=== PATIENT | female | born 1965 | race Caucasian/White ===

== ENCOUNTER 2019-05-03 10:40 | Emergency (ER) | payer BC ==
[2019-05-03 10:58] VITALS: RESP 18; TEMP 98.7
--- NOTE | 2019-05-03 11:36 | XR ---
Right knee HISTORY: Right knee pain 3 views of the right knee Bone mineralization, joint spaces and alignment are maintained. No fracture or dislocation. Minimal s uprapatellar increased density may represent small effusion. IMPRESSION: Difficult to exclude small effusion. Knee MRI may be of benefit.
--- NOTE | 2019-05-03 11:57 | ED ---
Lower Extremity Injury HPI - General Chief Complaint: Extremity Injury, Lower Stated Complaint: Knee Pain Time Seen by Provider: 05/03/19 10:59 Source: patient, RN notes reviewed Mode of arrival: ambulatory Limitations: no limitations - History of Present Illness Initial Comments: 53-year-old female presents emergency Department chief complaint of right knee pain. Patient states has progressively worsened. 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 Patient states that she feels some pain in the top of her calf and posterior knee region. Denies any definite swelling redness or discoloration no trauma. Patient states that has been more bothersome words difficult to walk. Patient's had no prior knee surgeries denie s any other complaints no paresthesias. - Related Data Home Medications Medication Instructions Recorded Confirmed No Known Home Medications 05/03/19 05/03/19 Allergies Allergy/AdvReac Type Severity Reaction Status Date / Time No Known Allergies Allergy Verified 05/03/19 11:14 Review of Systems ROS Statement: Those systems with pertinent positive or pertinent negative responses have been documented in the HPI. ROS Other: All systems not noted in ROS Statement are negative. Past Medical History Past Medical History: Cancer Additional Past Medical History / Comment(s): hx. skin cancer History of Any Multi-Drug Resistant Organisms: None Reported Past Surgical History: No Surgical Hx Reported Additional Past Anesthesia/Blood Transfusion Reaction / Comment(s): no family problems w/anesthesia Past Psychological History: No Psychological Hx Reported Smoking Status: Never smoker Past Alcohol Use History: Daily Past Drug Use History: None Reported General Exam Limitations: no limitations General appearance: alert, in no apparent distress Head exam: Present: atraumatic, normocephalic, normal inspection Eye exam: Present: normal appearance, PERRL, EOMI. Absent: scleral icterus, conjunctival injection, periorbital swelling ENT exam: Present: normal exam, normal oropharynx, mucous membranes moist Neck exam: Present: normal inspection, full ROM. Absent: tenderness, meningismus, lymphadenopathy Respiratory exam: Present: normal lung sounds bilaterally. Absent: respiratory distress, wheezes, rales, rhonchi, stridor Cardiovascular Exam: Present: regular rate, normal rhythm, normal heart sounds. Absent: systolic murmur, diastolic murmur, rubs, gallop, clicks Extremities exam: Present: other (Right knee there is mild tenderness in the popliteal region more on the medial aspect, patient's full range of motion no laxity no pain with anterior posterior valgus or varus. Pulses equal bilaterally no discoloration equal warmth) Skin exam: Present: warm, dry, intact, normal color. Absent: rash Course Vital Signs 05/03/19 05/03/19 10:54 12:58 Temperature 98.7 F Pulse Rate 90 61 Respiratory 18 18 Rate Blood Pressure 158/71 145/78 O2 Sat by Pulse 100 100 Oximetry Medical Decision Making - Medical Decision Making 53-year-old female presented for right knee pain. Patient also shows evidence of gastrocnemius cyst. Patient will follow-up with orthopedics she does have an appointment scheduled. Patient continued anti-inflammatories, ice and rest. Disposition Clinical Impression: Popliteal cyst Narrative: Gastrocnemius cyst Disposition: HOME SELF-CARE Condition: Stable Instructions (If sedation given, give patient instructions): Bakers Cyst (ED) Additional Instructions: Please return to the Emergency Department if symptoms worsen or any other concerns. Is patient prescribed a controlled substance at d/c from ED?: No Referrals: Benson Gilman MD [Primary Care Provider] - 1-2 days Brian Diaz MD [STAFF PHYSICIAN] - 1-2 days Time of Disposition: 13:04
--- NOTE | 2019-05-03 12:47 | US ---
EXAMINATION TYPE: US venous doppler duplex LE RT DATE OF EXAM: 05/03/2019 12:26 PM COMPARISON: NONE CLINICAL HISTORY: Pain. Right medial popliteal pain SIDE PERFORMED: Right TECHNIQUE: The lower extremity deep venous system is examined utilizing real time linear array sonog roxi with graded compression, doppler sonography and color-flow sonography. VESSELS IMAGED: Common Femoral Vein Deep Femoral Vein Greater Saphenous Vein * Femoral Vein Popliteal Vein Small Saphenous Vein * Proximal Calf Veins (* superficial vessels) There is normal flow, compressibility, vascular waveforms. Right Leg: Negative for DVT. Small complex fluid area medial to rt knee at area of patient's pain = 2.4 x 1.0 x 1.3cm. IMPRESSION: No evident deep venous thrombosis at or above the right knee. 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 Consider knee MRI for better evaluation.
[2019-05-03 12:59] VITALS: BP 145/78; PULSE 61
== END 2019-05-03 13:15 | disposition home or self-care (01) ==
LOC: EC 10:40
DX: M71.21 Synovial cyst of popliteal space [Baker], right knee (principal); Z85.828 Personal history of other malignant neoplasm of skin
CPT/HCPCS: 99284

== ENCOUNTER → 2019-11-15 | Outpatient (CLI) | payer BC ==
[2019-11-15 12:30] LABS: Basophils % (A) 0 %; Eosinophils # (A) 0.1 k/uL (0-0.7); Eosinophils % (A) 2 %; HCT 28.6 % (34.0-46.0); HGB 8.8 gm/dL (11.4-16.0); Hypochromasia Marked; Lymphocytes # (A) 1.1 k/uL (1.0-4.8); Lymphocytes % (A) 14 %; MCH 25.8 pg (25.0-35.0); MCHC 30.8 g/dL (31.0-37.0); MCV 83.8 fL (80.0-100.0); Mean Platelet Volume 7.3; Monocytes # (A) 0.4 k/uL (0-1.0); Monocytes % (A) 5 %; Neutrophils % (A) 76 %; Platelet Count 528 k/uL (150-450); RBC 3.41 m/uL (3.80-5.40); RDW 13.8 % (11.5-15.5); WBC 7.8 k/uL (3.8-10.6)
== END | disposition home or self-care (01) ==
LOC: LABPAT 11:42
PROVIDERS: ATTEND Obstetrics & Gynecology
DX: Z01.818 Encounter for other preprocedural examination (principal); N92.0 Excessive and frequent menstruation with regular cycle; N93.8 Other specified abnormal uterine and vaginal bleeding; D64.9 Anemia, unspecified
CPT/HCPCS: 36415; 85025

== ENCOUNTER 2019-12-06 06:06 | Day surgery (SDC) | payer BC ==
[2019-12-01 15:36] VITALS: BMI 21.7
[~2019-12-06 06:06] MED LIST: DEXAMETHASONE SOD PHOSPHATE 10 MG/ML 1 ML VIAL IV ONE; HYDROmorphone 0.5 MG/0.5 ML SYRINGE IVP PRN; LACTATED RINGERS 1,000 ML IV SCH; MIDAZOLAM 2 MG/2 ML VIAL IV PRN; ONDANSETRON 4 MG/2 ML VIAL IVP ONE; Pre Op ABX Message 1 EACH MISC MISCELLANE ONE; SCOPOLAMINE 1.5MG/72HR PATCH TRANSDERM ONE
[2019-12-06] MEDS ORDERED: LIDOCAINE 1% INJ 10MG/ML (20 ML MDV) ONE (07:25)
[2019-12-06] MEDS ORDERED: KETOROLAC 30 MG/ML 1 ML VIAL ONE (07:25)
[2019-12-06] MEDS ORDERED: PROPOFOL 10 MG/ML 20 ML VIAL IV ONE (07:25)
[2019-12-06] MEDS ORDERED: MIDAZOLAM 2 MG/2 ML VIAL ONE (07:25)
[2019-12-06] MEDS ORDERED: fentaNYL (PF) 50 MCG/ML 2 ML AMP ONE (07:25)
[2019-12-06 08:11] VITALS: TEMP 97.6
[2019-12-06] MEDS ORDERED: SIMETHICONE 80 MG CHEWABLE PO PRN (08:11)
[2019-12-06] MEDS ORDERED: diphenhydrAMINE 50 MG/ML 1 ML VIAL IVP PRN (08:11)
[2019-12-06] MEDS ORDERED: METOCLOPRAMIDE 5 MG/ML 2 ML VIAL IVP PRN (08:11)
[2019-12-06] MEDS ORDERED: ONDANSETRON 4 MG/2 ML VIAL IVP PRN (08:11)
[2019-12-06] MEDS ORDERED: IBUPROFEN 600 MG TAB PO PRN (08:11)
[2019-12-06] MEDS ORDERED: Acetaminophen-Codeine 300-30mg TAB PO PRN ×2 (08:11)
[2019-12-06] MEDS ORDERED: KETOROLAC 30 MG/ML 1 ML VIAL IVP PRN (08:11)
[2019-12-06] MEDS ORDERED: LACTATED RINGERS 1,000 ML IV SCH (08:15)
--- NOTE | 2019-12-06 08:20 | P.OP ---
Date of Procedure: 12/06/19 Preoperative Diagnosis: #1. Menorrhagia #2. Dysfunctional uterine bleeding Postoperative Diagnosis: Same Procedure(s) Performed: #1. Diagnostic hysteroscopy #2. NovaSure endometrial ablation Anesthesia: other (Gen. by LMA) Surgeon: Nicolas Martin Estimated Blood Loss (ml): 5 IV fluids (ml): 400 Urine output (ml): 50 Pathology: none sent Condition: stable Disposition: PACU Operative Findings: Preoperative pelvic examination demonstrated a 5-6 week midplane to slightly anteverted mobile normal shaped uterus with normal adnexa bilaterally. Intraoperatively, the uterus sounded to approximately 9 cm while the cervix measured approximately 3.5 cm. There was some clot within the endometrial cavity making clear view of the entire cavity somewhat difficult. The tubal ostial regions were seen but the ostia themselves were not specifically seen. There was otherwise no apparent pathology present. The settings for the NovaSure tool was a length of 5.5 cm, a width of 4.7 cm for a total power of 142 W. The cavity check was passed without difficulty. The total run time was 47 seconds after which time the base unit read "procedure complete." The postprocedural result appeared to be excellent. The patient is a borderline candidate for vaginal hysterectomy should become necessary. Description of Procedure: The patient was prepped and draped in usual fashion after general anesthesia was administered by the anesthesiologist. A weighted speculum was placed and the bladder drained of approximately 50 mL of clear ethel urine. The anterior lip of the cervix was grasped with a single-tooth tenaculum allowing sounding of the uterus to 9 cm with a length of 3.5 cm for the cervix. Serial dilation was carried out to admit the diagnostic hysteroscope which was placed with the findings noted as above. There was no apparent pathology. The tubal ostia were never clearly seen secondary to the angles of the uterine cavity but there was no apparent pathology as previously noted. There was a small amount of clot in the cavity making view of each surface more difficult. The scope was removed and set aside after adequate hysteroscopy and the NovaSure tool placed into the cavity, opened, and seated well. The settings were as noted above with a length of 5.5 cm, a width of 4.7 cm for a total power 142 W. The cavity check was attempted and passed without difficulty. The tool was enabled and the run was started. After a run time of 47 seconds, the base unit read "procedure complete." The tool was closed, removed, and discarded. The diagnostic hysteroscope was replaced within the endometrial cavity and the resulting findings appeared excellent. All instrumentation was removed and there was no ongoing bleeding from either the cervix or the tenaculum site. Estimated blood loss for the entire case was less than 5 mL. There were no complications. All sponge, instrument, and needle counts were correct. The patient tolerated the procedure well and proceeded to the recovery room in stable condition.
[2019-12-06 10:22] VITALS: BP 142/73; PULSE 61; RESP 18
== END 2019-12-06 10:30 | disposition home or self-care (01) ==
LOC: OR 06:06
PROVIDERS: ATTEND Obstetrics & Gynecology
DX: N92.0 Excessive and frequent menstruation with regular cycle (principal); N93.8 Other specified abnormal uterine and vaginal bleeding; D64.9 Anemia, unspecified; E89.2 Postprocedural hypoparathyroidism; E55.9 Vitamin D deficiency, unspecified; J40 Bronchitis, not specified as acute or chronic; Z87.891 Personal history of nicotine dependence; Z82.49 Family history of ischemic heart disease and other diseases of the circulatory system; Z85.9 Personal history of malignant neoplasm, unspecified
CPT/HCPCS: 81025; 58563; J2250; J1100; J2405; J2001; J3010; J1885; J2704

== ENCOUNTER → 2020-06-21 | Outpatient (CLI) | payer BC ==
[2020-06-21 08:32] LABS: Anisocytosis Slight; Basophils % (A) 1 %; Eosinophils # (A) 0.2 k/uL (0-0.7); Eosinophils % (A) 4 %; HCT 27.7 % (34.0-46.0); HGB 7.8 gm/dL (11.4-16.0); Hypochromasia Marked; Lymphocytes # (A) 0.9 k/uL (1.0-4.8); Lymphocytes % (A) 18 %; MCH 20.8 pg (25.0-35.0); MCHC 28.2 g/dL (31.0-37.0); MCV 73.6 fL (80.0-100.0); Mean Platelet Volume 6.6; Microcytosis Moderate; Monocytes # (A) 0.3 k/uL (0-1.0); Monocytes % (A) 6 %; Neutrophils # (A) 3.6 k/uL (1.3-7.7); Neutrophils % (A) 69 %; Platelet Count 550 k/uL (150-450); RBC 3.76 m/uL (3.80-5.40); RDW 16.4 % (11.5-15.5); WBC 5.2 k/uL (3.8-10.6)
[2020-06-21 08:38] LABS: African American GFR (CKD) >90 (>60 ml/min/1.73 sqM); Anion Gap 4 mmol/L; Blood Urea Nitrogen 15 mg/dL (7-17); Carbon Dioxide 23 mmol/L (22-30); Chloride 107 mmol/L (98-107); Glucose 97 mg/dL (74-99); Non-African American GFR(CKD) >90 (>60 ml/min/1.73 sqM); Sodium 134 mmol/L (137-145)
== END | disposition home or self-care (01) ==
LOC: LABWHC1 07:27
PROVIDERS: ATTEND Obstetrics & Gynecology
DX: Z01.818 Encounter for other preprocedural examination (principal); N93.8 Other specified abnormal uterine and vaginal bleeding
CPT/HCPCS: 36415; 80051; 82565; 82947; 84520; 85025; 87086

== ENCOUNTER 2020-06-26 05:43 | Day surgery (SDC) | payer BC ==
[2020-06-20 11:53] VITALS: BMI 21.7
--- NOTE | 2020-06-25 18:30 | HP ---
HISTORY AND PHYSICAL HISTORY OF PRESENT ILLNESS: The patient is a 54-year-old 0, para 0 who presents to the office with a longstanding history of irregular bleeding and has failed multiple medical interventions, including NovaSure endometrial ablation which was done approximately 8 months ago. She continues to have irregular and fairly continuous and occasionally very heavy vaginal bleeding and has requested definitive treatment with hysterectomy. Exam under anesthesia suggests the best approach is Da Alina in nature. PAST MEDICAL HISTORY: Significant for anemia, possible fibroid uterus and chronic shoulder issues. PAST SURGICAL HISTORY: Significant for diagnostic hysteroscopy with NovaSure endometrial ablation in 2019. She additionally has undergone parathyroidectomy in the distant past and colonoscopy as well. There were no apparent anesthetic concerns. OBSTETRICAL HISTORY: 0, para 0 with method of contraception being vasectomy as well as menopause at this point. GYNECOLOGIC HISTORY: Unremarkable, with no history of any infections to include STDs. FAMILY HISTORY: Noncontributory. SOCIAL HISTORY: The patient is and a nonsmoker. She denies any alcohol of concern or any other social concerns. CURRENT MEDICATIONS: Current medications include oral contraception daily. She also takes ibuprofen as needed as well as vitamin D and calcium over the counter. ALLERGIES: NO KNOWN DRUG ALLERGIES. REVIEW OF SYSTEMS: Review of systems is confined to history of present illness. PHYSICAL EXAMINATION: Vital signs are stable. The patient is afebrile. In general, this is a well- developed, well-nourished white female in no acute distress. Her heart has a regular rhythm and rate without murmur. Her lungs are clear to auscultation bilaterally in all banegas. Her abdomen is nondistended, has normoactive bowel sounds, is soft, nontender, and without any palpable masses, hepatosplenomegaly or hernias. Her extremities are without any cyanosis, clubbing or significant edema and are nontender to palpation bilaterally. Pelvic examination demonstrates normal external genitalia and BUS with normal vaginal mucosa and cervix. There is no cervical motion tenderness. The uterus is approximately 5-6 weeks in size, mid plane to slightly anteverted, mobile, nontender and normal in shape. The adnexa are normal and nontender without mass bilaterally. ASSESSMENT AND PLAN: Dysfunctional uterine bleeding. The patient has failed multiple medical interventions, including NovaSure endometrial ablation, and has requested definitive therapy with hysterectomy. Exam bears out that a robotic approach would likely be the most effective. As a result, she was counseled regarding Da Alina robotically assisted laparoscopic hysterectomy with bilateral salpingectomy and diagnostic cystoscopy. The risks and complications of the procedure have been thoroughly discussed, including the risk for bleeding, bleeding requiring transfusion, infection, and injury to local structures to specifically include the bowel, bladder and ureters. I went on to discuss injuries that were unique to Da Alina surgery, including thermal injury as well as vaginal cuff dehiscence. She has understood all this and agreed to proceed. We are scheduled for the morning of June 26, 2020, for the procedures as outlined above. MMODL / IJN: [id number] /
[~2020-06-26 05:43] MED LIST changes: -LACTATED RINGERS 1,000 ML IV SCH; -Pre Op ABX Message 1 EACH MISC MISCELLANE ONE
[2020-06-26] MEDS: LACTATED RINGERS 1,000 ML IV SCH ×2 (06:21→08:14)
[2020-06-26 06:29] LABS: Glucose,Whole Blood 104 mg/dL (75-99)
[2020-06-26] MEDS ORDERED: fentaNYL (PF) 50 MCG/ML 2 ML AMP IV ONE (06:43)
[2020-06-26 06:44] LABS: Anisocytosis Slight; Basophils % (A) 0 %; Eosinophils # (A) 0.4 k/uL (0-0.7); Eosinophils % (A) 4 %; HCT 29.8 % (34.0-46.0); HGB 8.8 gm/dL (11.4-16.0); Hypochromasia Marked; Lymphocytes # (A) 1.1 k/uL (1.0-4.8); Lymphocytes % (A) 13 %; MCH 21.9 pg (25.0-35.0); MCHC 29.5 g/dL (31.0-37.0); MCV 74.2 fL (80.0-100.0); Mean Platelet Volume 6.8; Microcytosis Moderate; Monocytes # (A) 0.4 k/uL (0-1.0); Monocytes % (A) 4 %; Neutrophils # (A) 6.8 k/uL (1.3-7.7); Neutrophils % (A) 78 %; Platelet Count 524 k/uL (150-450); RBC 4.02 m/uL (3.80-5.40); RDW 16.7 % (11.5-15.5); WBC 8.7 k/uL (3.8-10.6)
[2020-06-26] MEDS ORDERED: MORPHINE SULFATE (PF) 0.3 MG/0.3 ML SYR ONE (07:25)
[2020-06-26] MEDS ORDERED: ROCURONIUM 10 MG/ML (5 ML VIAL) IV ONE (07:25)
[2020-06-26] MEDS ORDERED: PROPOFOL 10 MG/ML 20 ML VIAL IV ONE (07:25)
[2020-06-26] MEDS ORDERED: GLYCOPYRROLATE 0.2 MG/ML 2 ML VIAL ONE (07:25)
[2020-06-26] MEDS ORDERED: NEOSTIGMINE 1 MG/ML 10 ML VIAL ONE (07:25)
[2020-06-26] MEDS ORDERED: MIDAZOLAM 2 MG/2 ML VIAL ONE (07:25)
[2020-06-26] MEDS ORDERED: SUCCINYLCHOLINE CHLORIDE 100 MG/5 ML SYR IV ONE (07:25)
[2020-06-26] MEDS ORDERED: LIDOCAINE 1% INJ 10MG/ML (20 ML MDV) ONE (07:25)
[2020-06-26] MEDS ORDERED: fentaNYL (PF) 50 MCG/ML 2 ML AMP ONE (07:25)
[2020-06-26] MEDS ORDERED: BUPIVACAINE (PF) 0.25% 30 ML VIAL SQ ONE ×2 (07:35→09:34)
[2020-06-26] MEDS ORDERED: IV FLUID CONTINUATION 1,000 ML IV ONE (07:35)
[2020-06-26] MEDS ORDERED: LACTATED RINGERS 1,000 ML IV ONE (09:19)
[2020-06-26] MEDS ORDERED: ONDANSETRON 4 MG/2 ML VIAL IVP PRN (09:41)
[2020-06-26] MEDS ORDERED: METOCLOPRAMIDE 5 MG/ML 2 ML VIAL IVP PRN (09:41)
[2020-06-26] MEDS ORDERED: KETOROLAC 15 MG/ML 1 ML VIAL IVP PRN (09:41)
[2020-06-26] MEDS ORDERED: Acetaminophen-Codeine 300-30mg TAB PO PRN ×2 (09:41)
[2020-06-26] MEDS ORDERED: IBUPROFEN 600 MG TAB PO PRN (09:41)
[2020-06-26] MEDS ORDERED: SIMETHICONE 80 MG CHEWABLE PO PRN (09:41)
[2020-06-26] MEDS ORDERED: diphenhydrAMINE 50 MG/ML 1 ML VIAL IVP PRN (09:41)
[2020-06-26] MEDS: HYDROmorphone 1 MG/ML 1 ML SYRINGE IVP ONE ×2 (09:50→10:02)
--- NOTE | 2020-06-26 09:55 | P.OP ---
Date of Procedure: 06/26/20 Preoperative Diagnosis: #1. Menorrhagia #2. Dysfunctional uterine bleeding #3. Failed endometrial ablation Postoperative Diagnosis: Same plus #4. Fibroid uterus Procedure(s) Performed: #1. Da Alina robotically assisted laparoscopic hysterectomy with bilateral salpingectomy #2. Diagnostic cystoscopy Anesthesia: CROW Surgeon: Nicolas Martin Scroll Shear Operator #1: Shannon Cabral Estimated Blood Loss (ml): 100 IV fluids (ml): 700 Urine output (ml): 200 Pathology: other (Uterus, and pieces secondary to morcellation) Condition: stable Disposition: PACU Operative Findings: Preoperative pelvic examination demonstrated a roughly 6 week midplane mobile normal shaped uterus with normal adnexa bilaterally. Intraoperatively, the uterus was fairly significantly bulky and appeared adenomyotic with a possible l eft fundal fibroid. The tubes and ovaries were otherwise normal to inspection. The postprocedural cystoscopic view demonstrated no evidence of damage the bladder either internally or externally. The bilateral ureteral openings were noted to be peristalsing using the cystoscope. Description of Procedure: The patient was prepped and draped in usual fashion after general endotracheal anesthesia was administered by the anesthesiologist. A weighted speculum was placed and the anterior lip the cervix was grasped with single-tooth tenaculum. Uterus was sounded to approximately 9-10 cm and serial dilation carried out to admit the uterine manipulator which was placed without difficulty using a device with the medium cervical cup. The bladder was then catheterized for clear urine. Attention was turned to the abdomen where a site was selected approximately 4 cm above the umbilicus in the midline where an 8 mm incision was made in the transverse plane allowing insertion of a 5 mm optical trocar under direct visualization difficulty. The pneumoperitoneum was then instilled and the patient placed in Trendelenburg. A site was selected approximately 10-12 7 m lateral and 3-4 some meters inferiorly in the left lower quadrant where an 8 mm incision was made in the transverse plane allowing insertion of an 8mm da Alina trocar under direct vision station without difficulty. A similar trocar was placed in the right lower quadrant. Between the left were quadrant incision and the optical trocar site was selected of easily between July approximately 3-4 cm above the optical trocar were a 10 mm incision was made in the transverse plane along insertion of a 10 mm real estate assistant port under direct visualization without difficulty. The robot was then docked to the patient in the arms loaded with a [place] bipolar cautery forceps in the left arm and a monopolar cautery scissors in the right arm. The uterus was noted to be fairly large and bulky and was somewhat difficult to manipulate. The left fallopian tube was elevated and divided from the underlying ovary using cautery. Bipolar cautery and monopolar scissors were utilized to carry the dissection down through the utero-ovarian ligament and round ligament at which time the bladder peritoneum was elevated and incised to the midline. Some additional skeletonization was carried out to identify the uterine vasculature and the bladder peritoneum was reflected somewhat distally. Attention was turned the right side where the fallopian tube was again elevated and dissected from underlying ovary down and through the utero-ovarian ligament and round ligament. Again the bladder peritoneum was elevated and incised and joined to the previous dissection. Further dissection was carried out to identify the fascial plane and the bladder was reflected distally both sharply and bluntly. After further dissection in the region of the vascular pedicles of the vasculature was identified and cauterized with the bipolar cautery forceps. It was then divided. There was some moderate backbleeding ongoing of the uterus. Attention was returned to the low left side where similar operations were carried out. The vaginal cup was easily identified and the vagina sealed allowing the anterior vagina to be opened along the margin of the cup. This was carried around posterior side and joined front ultimately. The uterus was very large and very difficult to remove through the vagina as the patient was nulliparous and the uterus was large. As result, the uterus was morcellated in multiple pieces after which time it was eventually brought into the vagina. The monopolar cautery scissors were replaced with a overnight babysitter scopic suturing device and a stitch of oh Stratafix suture was passed into the abdominal cavity. The suture was then used to close the vaginal cuff from the right angle to the left angle in standard fashion without difficulty. Thorough irrigation was carried out there was no ongoing bleeding anywhere along the cuff. I then returned to the patient at which time the Berkowitz catheter was removed and replaced with a diagnostic cystoscope. The bladder was filled with sterile saline and the ureteral openings watched and both were seen peristalsing. The dome of the bladder appeared to have no damage from either the laparoscopic or cystoscopic perspective. All instrumentation was then removed and the catheter replaced. The robot had been previously undocked and the trochars removed. The skin incisions were closed with interrupted subcuticular stitches of 4-0 Vicryl followed by half-inch Steri-Strips placed with Mastisol. The 4 incisions were infused with a total of 10 mL of half percent Marcaine without epinephrine equally divided between the 4 incisions. Estimated blood loss for the entire case was approximately 100 mL. There were no complications. All sponge, instrument, needle counts were correct. The patient tolerated the procedure well and proceeded to the recovery room in stable condition.
[2020-06-26] MEDS ORDERED: KETOROLAC 15 MG/ML 1 ML VIAL IVP ONE (10:01)
[2020-06-26] MEDS ORDERED: NALOXONE 0.4 MG/ML 1 ML VIAL IV PRN (10:41)
[2020-06-26 18:35] VITALS: RESP 16
[2020-06-27] MEDS: SENNOSIDES-DOCUSATE SODIUM 1 EACH TAB PO SCH ×2 (03:02→07:25)
--- NOTE | 2020-06-27 07:04 | P.PN ---
Progress Note - Text Progress Note Date: 06/27/20 (696) Anesthesia Postop day 1 Subjective: Status Post robotic hysterectomy with Duramorph. Patient seen and examined. Doing well without complaint. VAS 0 out of 10. Denies nausea vomiting or pruritus. Afebrile. Gross lower extremity strength intact. Spinal site intact without induration. Without apparent anesthetic complications. Objective: Vital signs reviewed Heart: Regular Rate Lungs: Good chest excursion Abdomen: Appears nondistended Assessment: Status post robotic hysterectomy with Duramorph postop day 1 Plan: Continue current care with your medical management.
[2020-06-27 08:17] VITALS: BP 143/62; PULSE 78; TEMP 98.9
[2020-06-27] MEDS: LACTATED RINGERS 1,000 ML IV SCH ×2 (08:17→08:18)
[2020-06-27 08:26] LABS: Anisocytosis Slight; Basophils % (A) 0 %; Eosinophils # (A) 0.2 k/uL (0-0.7); Eosinophils % (A) 3 %; HCT 25.7 % (34.0-46.0); HGB 7.5 gm/dL (11.4-16.0); Hypochromasia Marked; Lymphocytes # (A) 1.1 k/uL (1.0-4.8); Lymphocytes % (A) 12 %; MCH 21.8 pg (25.0-35.0); MCHC 29.1 g/dL (31.0-37.0); MCV 74.8 fL (80.0-100.0); Mean Platelet Volume 8.1; Microcytosis Slight; Monocytes # (A) 0.4 k/uL (0-1.0); Monocytes % (A) 4 %; Neutrophils # (A) 7.4 k/uL (1.3-7.7); Neutrophils % (A) 80 %; Platelet Count 405 k/uL (150-450); RBC 3.43 m/uL (3.80-5.40); RDW 16.8 % (11.5-15.5); WBC 9.2 k/uL (3.8-10.6)
--- NOTE | 2020-06-27 08:51 | P.DS ---
Providers Expected date of discharge: 06/27/20 Attending physician: Nicolas Martin Primary care physician: Benson Gilman - Discharge Diagnosis(es) (1) Dysfunctional uterine bleeding Current Visit: No Status: Acute (2) Menorrhagia Current Visit: No Status: Acute Hospital Course: The patient is a 54-year-old 0 para 0 who initially presented with a history of irregular bleeding and has failed multiple medical interventions including NovaSure endometrial ablation approximately 8 months ago. She continues to have significant irregular and continuous bleeding occasionally very heavy as well. She has requested definitive therapy and is only a candidate for abdominal or da Alina approach. As result, she was taken the operating room where she underwent da Alina robotically assisted laparoscopic hysterectomy with bilateral salpingectomy and diagnostic cystoscopy. These procedures were carried out in an uncomplicated fashion. Her postoperative course has been entirely unremarkable with vital signs remaining stable and her temperature was afebrile throughout. She was deemed stable for discharge on po st operative day #1 and was discharged home to follow-up in the office in 2 weeks for an incision check and 8 weeks routinely. Discharge instructions included calling for any significantly increased bleeding or abdominal pain, GI concerns, urinary issues, incisional complaints, or anything else that concerned her. She is additionally instructed to have nothing in the vagina for at least 8 weeks time to include intercourse. She understood all of her instructions and agrees to follow-up as noted above. Discharge medications included [id number] analgesic pain medications as well as any home medications. She was provided a prescription for Tylenol 3, 1-2 by mouth every 6 hours when necessary pain, #20 dispensed with no refills though she may not need it. Discharge hemoglobin and hematocrit were 7.5 and 25.7 though she began had a hemoglobin of 8.8 and 29.8. She is entirely asymptomatic and has been instructed to use iron sulfate to help rebuild her hemoglobin as it does appear iron deficient. Procedures: #1. Da Alina robotically assisted laparoscopic hysterectomy with bilateral salpingectomy #2. Diagnostic cystoscopy Patient Condition at Discharge: Stable Plan - Discharge Summary Discharge Rx Participant: Yes New Discharge Prescriptions: No Action Contol Pill 1 tab PO QAM Acetaminophen Tab [Tylenol Tab] 1,000 mg PO Q6HR Discharge Medication List Contol Pill 1 tab PO QAM 06/20/20 [History] Acetaminophen Tab [Tylenol Tab] 1,000 mg PO Q6HR 06/26/20 [History] Follow up Appointment(s)/Referral(s): Nicolas Martin MD [STAFF PHYSICIAN] - 2 Weeks Discharge Disposition: HOME SELF-CARE
== END 2020-06-27 09:10 | disposition home or self-care (01) ==
LOC: OR 05:43 → 4FBP 10:33 → OR 06-27 09:10
PROVIDERS: ATTEND Obstetrics & Gynecology
DX: D25.9 Leiomyoma of uterus, unspecified (principal); K21.9 Gastro-esophageal reflux disease without esophagitis; D64.9 Anemia, unspecified; Z79.3 Long term (current) use of hormonal contraceptives; Z98.890 Other specified postprocedural states
CPT/HCPCS: 81025; 86900; 86901; 85025 ×2; 86850; 88307; 58573; J2250; J1100; J2710; J0690; J2405; J2001; J2274; J3010; J1170; J1885; J0330; J2704

== ENCOUNTER → 2024-03-02 | Outpatient (CLI) | payer BC ==
--- NOTE | 2024-03-02 15:59 | US ---
EXAMINATION TYPE: US thyroid st tissue head/neck DATE OF EXAM: 03/02/2024 COMPARISON: NONE CLINICAL INDICATION: Female, 58 years old with history of R22.9 LOC SWELLING MASS LUMP; Pt states lum p at right supraclavicular area x 1 month TECHNIQUE: Multiple grayscale images of both supraclavicular areas were scanned in patients site of concern. FINDINGS/IMPRESSION: There is slight thickening of the sternocleidomastoid mastoid muscle on the right when compared to th e left. The right measures 1.2 cm in thickness and the left measures 0.8 cm in thickness. This is non specific. Correlate clinically. No focal lesion or fluid collection identified. No lymphadenopathy vi sualized.
== END | disposition home or self-care (01) ==
LOC: RADUSWWP 14:58
PROVIDERS: ATTEND Family Medicine
DX: R22.9 Localized swelling, mass and lump, unspecified (principal)
CPT/HCPCS: 76536